=== PATIENT | male | born 1985 | race Caucasian/White ===

== ENCOUNTER 2016-12-15 23:49 | Emergency (ER) | payer MEDICAID | END 2016-12-16 00:40 | disposition left against medical advice (07) | LOC: ER 23:50 | DX: R51 Headache (principal); Z53.21 Procedure and treatment not carried out due to patient leaving prior to being seen by health care provider ==

== ENCOUNTER 2018-02-15 02:50 | Emergency (ER) | payer MEDICAID | END 2018-02-15 05:55 | disposition left against medical advice (07) | LOC: ER 05:54 | DX: R03.0 Elevated blood-pressure reading, without diagnosis of hypertension (principal); Z53.21 Procedure and treatment not carried out due to patient leaving prior to being seen by health care provider ==

== ENCOUNTER 2021-03-19 19:14 | Emergency (ER) | payer SELFPAY ==
[~2021-03-19] VITALS: Ht 162.6 cm; Wt 72.4 kg
[2021-03-19 19:24] VITALS: BP 132/87
== END 2021-03-19 21:00 | disposition left against medical advice (07) ==
LOC: ER 19:14
DX: R10.30 Lower abdominal pain, unspecified (principal); I49.9 Cardiac arrhythmia, unspecified; Z53.21 Procedure and treatment not carried out due to patient leaving prior to being seen by health care provider
CPT/HCPCS: 93005; 99281

== ENCOUNTER 2021-05-16 22:11 | Emergency (ER) | payer SELFPAY | END 2021-05-16 23:14 | disposition left against medical advice (07) | LOC: ER 22:11 | DX: R10.9 Unspecified abdominal pain (principal); Z53.21 Procedure and treatment not carried out due to patient leaving prior to being seen by health care provider ==